=== PATIENT | female | born 1985 | race Caucasian/White ===

== ENCOUNTER → 2022-02-10 09:06 | Outpatient (CLI) | payer OTHER, SELFPAY ==
--- NOTE | 2022-02-10 09:10 | DI.ECHO.S_ITS ---
[facility] +---------+ [facility] +---------+ : : [address] : [address] : : : : [id number] : : : : Phone: [phone]+ Echocardiogram Report + + :Name: CASSIE MONIQUE Study Date: 02/10/2022 Height: 67 in : :[facility] ReadingLocation: Weight: 145 lb : : Gender: Female BSA: 1.8 m2 : :: 1985 Age: 36 yrs BP: 137/92 mmHg: :Reason For Study: Palpitations : :Ordering Physician: DOLORES, : :SAHRA Performed By: Yossi Ward : :Referring: SAHRA BERNAL : + + Interpretation Summary Normal sinus rhythm. Normal LV size and wall thickness; EF is 55-60%. Normal wall motion. Normal chamber sizes. No valvular abnormalities. No prior study available for comparison. Procedure: A two-dimensional transthoracic echocardiogram with color flow and Doppler was performed. The study quality was technically adequate. There is no prior echocardiogram noted for this patient. The patient was in normal sinus rhythm during the exam. Left Ventricle: The left ventricle is normal in size and wall thickness. Left ventricular systolic function is normal. The ejection fraction is estimated to be 55-60%. There are no focal wall motion abnormalities. Diastolic parameters suggest probable normal left ventricular diastolic function and normal filling pressures. Right Ventricle: The right ventricle is normal in size and function. Atria: Both atria are normal in size. The interatrial septum grossly appears intact with no obvious evidence for an atrial septal defect. Mitral Valve: The mitral valve is normal in structure and function. There is no mitral regurgitation noted. Aortic Valve: The aortic valve is normal in structure and function. No aortic regurgitation is present. Tricuspid Valve: The tricuspid valve is normal in structure and function. There is mild tricuspid regurgitation. The right ventricular systolic pressure is estimated to be at least 30 mmHg based on an estimated right atrial pressure of 3 mm Hg. Pulmonic Valve: The pulmonic valve is normal in structure and function. There is a trace or physiologic amount of pulmonic regurgitation. Great Vessels: The aortic root is normal size. The ascending aorta could not be visualized. The IVC is of normal diameter and collapses greater than 50% with a sniff. This suggests a low right atrial pressure of 3 mm Hg. Pericardium/ Pleura There is no pericardial effusion. There is no pleural effusion. MMode/2D Measurements & Calculations LVIDd: 4.3 cm LVOT diam: 2.2 cm LVIDs: 3.0 cm Ao root diam: 3.1 cm FS: 31.9 % IVSd: 0.85 cm LVPWd: 0.82 cm LV vasquez. diameter/BSA (cm/m^2): 2.5 LV sys. diameter/BSA (cm/m^2): 1.7 LA A4 area: 16.1 cm2 RA long axis: 4.7 cm LA length (vol): 5.0 cm RA area: 14.8 cm2 RA vol: 40.0 ml RA : 22.7 ml/m2 TAPSE: 2.5 cm Doppler Measurements & Calculations Ao V2 max: 123.7 cm/sec LVOT Max Diego: 110.2 cm/sec Ao V2 mean: 85.9 cm/sec LV V1 max P.9 mmHg Ao max P.1 mmHg LV V1 VTI: 20.4 cm Ao mean P.3 mmHg MATHEW(I,D): 3.5 cm2 Ao V2 VTI: 22.7 cm MATHEW(V,D): 3.5 cm2 sev ratio: 0.90 MATHEW indexed to BSA (cm^2/m^2): 2.0 MV E max diego: 82.5 cm/sec TR max diego: 259.2 cm/sec MV A max diego: 81.7 cm/sec TR max P.9 mmHg MV E/A: 1.0 Med Peak E' Diego: 12.6 cm/sec E/E' med: 6.5 Lat Peak E' Diego: 14.8 cm/sec E/E' lat: 5.6 E/e' average: 6.0 MV dec time: 0.22 sec SV(LVOT): 79.8 ml Electronically signed by: Sendy Rowe M.D. on Reading Physician:02/10/2022 06:19 PM
== END ==
PROVIDERS: Family Provider Obstetrics & Gynecology; PCP Obstetrics & Gynecology; Referring Provider Family Medicine; Visit Provider Family Medicine
DX: I07.1 Rheumatic tricuspid insufficiency (principal); R00.2 Palpitations
CPT/HCPCS: 93306